=== PATIENT | female | born 1950 | race Caucasian/White ===

== ENCOUNTER 2021-01-09 07:01 | Inpatient (IN) | payer MEDICARE, BC ==
[2021-01-05 15:12] LABS: BASOPHILS # (AUTO) 0.1 X10'3 (0-0.2); BASOPHILS % (AUTO) 0.7 % (0-1); EOSINOPHILS # (AUTO) 0.2 X10'3 (0-0.9); EOSINOPHILS % (AUTO) 1.5 % (0-6); LYMPHOCYTES # (AUTO) 1.9 X10'3 (1.1-4.8); LYMPHOCYTES % (AUTO) 15.5 % (21-51); MEAN CORPUSCULAR HEMOGLOBIN 33.3 PG (27.0-31.0); MEAN CORPUSCULAR HGB CONC 33.8 g/dL (33.0-36.5); MEAN CORPUSCULAR VOLUME 98.4 FL (78-98); MEAN PLATELET VOLUME 8.3 FL (7.4-10.4); MONOCYTES # (AUTO) 0.8 X10'3 (0-0.9); MONOCYTES % (AUTO) 6.1 % (2-12); NEUTROPHILS # (AUTO) 9.4 X10'3 (1.8-7.7); NEUTROPHILS % (AUTO) 76.2 % (42-75); PRE OP HEMATOCRIT 44.1 % (35.0-45.0); PRE OP HEMOGLOBIN 14.9 g/dL (12.0-16.0); PRE OP PLATELET COUNT 264 X10'3 (140-440); RED BLOOD COUNT 4.48 X10'6 (4.20-5.60); RED CELL DISTRIBUTION WIDTH 14.3 % (11.5-14.5)
[2021-01-05 15:21] LABS: CLARITY,URINE SLIGHTLY CLOUDY (Clear); COLOR,URINE YELLOW (Yellow); GLUCOSE, URINE NEGATIVE (Neg); KETONES,URINE NEGATIVE (Neg); LEUKOCYTE ESTERASE ,URINE NEGATIVE (Neg); NITRITES, URINE NEGATIVE (Neg); OCCULT BLOOD,URINE NEGATIVE (Neg); PROTEIN,URINE NEGATIVE (Neg); UROBILINOGEN,URINE 0.2 E.U/dL (0.2-1.0)
[2021-01-05 15:24] LABS: ALBUMIN 3.3 G/DL (3.4-5.0); ALKALINE PHOSPHATASE 93 IU/L (46-116); BLOOD UREA NITROGEN 24 MG/DL (7-18); BUN/CREATININE RATIO 24.2 (6.6-38.0); CALCIUM 8.4 MG/DL (8.5-10.1); CHLORIDE 106 MMOL/L (99-107); CREATININE 0.99 MG/DL (0.40-0.90); PRE OP ALT 26 U/L (30-65); PRE OP ANION GAP 10 (8-16); PRE OP AST 20 U/L (10-37); PRE OP BILIRUB, TOTAL 0.3 MG/DL (0.0-1.0); PRE OP GLUCOSE 105 MG/DL (70-104); PRE OP POTASSIUM 4.1 MMOL/L (3.4-5.1); PRE OP SODIUM 142 MMOL/L (135-145); TOTAL CARBON DIOXIDE 26.2 MMOL/L (24-32); TOTAL PROTEIN 6.6 G/DL (6.4-8.2); eGFR 55 ML/MIN
[2021-01-05 15:39] LABS: UA COLLECTION TYPE CLN CATCH MIDSTREAM
[2021-01-05 15:41] LABS: MUCUS STRANDS MANY /LPF (Neg); SQUAMOUS EPITHELIAL CELL,UR MODERATE /LPF (FEW); TRANSITIONAL EPI CELLS,URINE FEW /HPF
[2021-01-05 15:43] LABS: BACTERIA,URINE FEW /HPF (Neg); WBC,URINE 0-4 /HPF (0-4)
[~2021-01-09] VITALS: Ht 154.9 cm; Wt 89.9 kg
[2021-01-09] VITALS (16 sets, daily range): BP systolic 106–151; BP diastolic 53–91
[~2021-01-09 07:01] MED LIST: BENA10TA74 PO; CHOL50002 PO; FLUO40CA PO; MELO-102 PO; MULT-1130 PO; OMEG-15 PO; VALA500T41 PO; VITA-268 PO; cefazolin/dext.iso 2gm/100ml IV ONE; famotidine 20mg tablet PO ONE; ringers solution, lacted 1,000 ML IV SCH
[2021-01-09] MEDS ORDERED: hydrALAZINE 20mg/ml inj. IV PRN (08:00)
[2021-01-09] MEDS ORDERED: acetaminophen 1,000mg/100ml IV 100 ML IV PRN (08:00)
[2021-01-09] MEDS ORDERED: labetalol 20mg/4ml (5mg/ml) syringe IV PRN (08:00)
[2021-01-09] MEDS ORDERED: morphine 2 MG/ML inj. syringe IV PRN (08:00)
[2021-01-09] MEDS ORDERED: morphine 4 MG/ML inj SYRINge IV PRN (08:00)
[2021-01-09] MEDS ORDERED: ondansetron/PF 4mg/2ml inj IV PRN ×2 (08:00→12:00)
[2021-01-09] MEDS ORDERED: proCHLORperazine 10 MG/2 ml inj IV PRN (08:00)
[2021-01-09] MEDS ORDERED: meperidine/PF 25mg/ml syringe IV PRN (08:00)
[2021-01-09] MEDS ORDERED: ringers solution, lacted 1,000 ML IV SCH (08:00)
[2021-01-09] MEDS ORDERED: HYDROmorphone/PF 0.2 MG/ML SYRINGE IV PRN (08:00)
[2021-01-09] MEDS ORDERED: scopolamine 1.5mg patch.TD72 TD ONE (08:40)
[2021-01-09] MEDS ORDERED: sevoflurane 250ml liquid IH ONE (08:56)
[2021-01-09] MEDS: scopolamine 1mg/72 hr patch TD SCH (09:00)
--- NOTE | 2021-01-09 09:02 | NUR ---
SCOPALAMINE PATCH 1 MG. APPLIED BEHIND R. EAR. EDUCATION GIVEN. PT. STATES UNDERSTANDING. PHARMACY NOTIFIED OF PATCH DOSE VS ORDER DOCUMENTATION AND UNKNOWN NDC NUMBER SO MED COULD NOT BE SCANNED.
[2021-01-09] MEDS ORDERED: fentaNYL/PF 50MCG/1 ML 2ML syringe ONE (09:07)
[2021-01-09] MEDS ORDERED: midazolam 1 mg/ML 2ml injection ONE (09:07)
[2021-01-09] MEDS ORDERED: propofol inj 20 ML IV ONE (09:43)
[2021-01-09] MEDS ORDERED: LIDOcaine 2% (20mg/ml) 5ml vial ONE (09:43)
[2021-01-09] MEDS ORDERED: 0.9 % SODIUM CHLORIDE 10 ML VIAL ONE ×2 (09:43)
[2021-01-09] MEDS ORDERED: dexamethasone sod phosphate 4mg/ml inj. ONE (09:43)
[2021-01-09] MEDS ORDERED: ROPIVAcaine 0.5% (5mg/ml) 30ml vial ONE (09:43)
[2021-01-09] MEDS ORDERED: ondansetron/PF 4mg/2ml inj ONE (09:45)
[2021-01-09] MEDS ORDERED: glycopyrrolate 0.2mg/ml inj ONE (09:55)
[2021-01-09] MEDS ORDERED: ROPIVAcaine 0.2% (10 MG/5 ML) BOLUS INJECTION POPLITEAL PRN (10:15)
[2021-01-09] MEDS ORDERED: ePHEDrine 50MG/ML INJ. ONE (10:25)
[2021-01-09] MEDS ORDERED: bacitracin 15gm ointment TP ONE (10:51)
[2021-01-09] MEDS ORDERED: magnesium hydroxide 30ml (MOM) UD suspension PO PRN (12:00)
[2021-01-09] MEDS ORDERED: mag hydrox/Alum hydrox/simeth 30ml oral suspension PO PRN (12:00)
[2021-01-09] MEDS ORDERED: acetaminophen 325mg tablet PO PRN (12:00)
--- NOTE | 2021-01-09 12:09 | NUR ---
Received from OR via BED IN STABLE CONDITION , accompanied by Anesthesiologist and CATSHOVEL DRIVER report given by Anesthesijodee. Addendum: 01/09/21 at 1336 by Berenice Estrella RN Amended: Links added.
[2021-01-09] MEDS: HYDROmorphone/PF 0.2 MG/ML SYRINGE IV PRN ×2 (12:48→13:20)
[2021-01-09] MEDS: ROPIVAcaine 0.2%/PF PUMP/bolus 545 ML POPLITEAL SCH (12:57)
--- NOTE | 2021-01-09 14:03 | NUR ---
Patient in room PAS IN 900. I have received report from Chanda RN in recovery and had the opportunity to ask questions and assume patient care.
--- NOTE | 2021-01-09 14:09 | NUR ---
PATIENT DISCHARGED FROM PACU INSTABLE CONDITION AFTER REPORT GIVEN TO WING DAVIS. PATIENT TRANSPORTED VIA BED WITH PERSONAL BELONGINGS WITH RN. Addendum: 01/09/21 at 1432 by Berenice Estrella RN Amended: Links added.
[2021-01-09] MEDS ORDERED: CHOL10006 PO (16:01)
[2021-01-09] MEDS ORDERED: potassium Cl 20 mEq SR tablet PO PRN ×2 (17:50)
[2021-01-09] MEDS ORDERED: potassium Cl 40MEQ/1/2NS 520ml 520 ML IV PRN (17:50)
[2021-01-09] MEDS ORDERED: magnesium Cl slow-release 64mg tablet PO PRN (17:50)
[2021-01-09] MEDS ORDERED: magnesium 4gm in 100ml NS 100 ML IV PRN (17:50)
--- NOTE | 2021-01-09 18:30 | NUR ---
Problems reprioritized. Patient report given, questions answered & plan of care reviewed with jey DIMAS.
[2021-01-09] MEDS: K and/or MAG REPLACEMENT MC SCH (20:00)
[2021-01-09] MEDS: lisinopril 10 MG tablet PO SCH (20:44)
[2021-01-09] MEDS ORDERED: CefTRIAXone/D5W-Rocephin 1gm 50 ML IV SCH (20:50)
--- NOTE | 2021-01-10 01:01 | NUR ---
reviewed assessment and edited as needed.
[2021-01-10 02:00] VITALS: BP 105/57
[2021-01-10] MEDS: HYDROcodone/acetaminophen 10/325mg tab PO PRN (05:04)
[2021-01-10 06:00] VITALS: BP 137/67
--- NOTE | 2021-01-10 06:15 | NUR ---
Patient in room ORTHO 4013. I have received report from Joanna DIMAS and had the opportunity to ask questions and assume patient care.
[2021-01-10 06:48] LABS: BASOPHILS % (AUTO) 0 % (0-1); EOSINOPHILS % (AUTO) 0.1 % (0-6); HEMATOCRIT 41.3 % (35.0-45.0); LYMPHOCYTES # (AUTO) 0.7 X10'3 (1.1-4.8); LYMPHOCYTES % (AUTO) 6.7 % (21-51); MEAN CORPUSCULAR HEMOGLOBIN 33.5 PG (27.0-31.0); MEAN CORPUSCULAR VOLUME 98.5 FL (78-98); MEAN PLATELET VOLUME 8.3 FL (7.4-10.4); MONOCYTES # (AUTO) 0.7 X10'3 (0-0.9); MONOCYTES % (AUTO) 6.3 % (2-12); NEUTROPHILS # (AUTO) 9.7 X10'3 (1.8-7.7); NEUTROPHILS % (AUTO) 86.9 % (42-75); PLATELET COUNT 220 X10'3 (140-440); RED BLOOD COUNT 4.19 X10'6 (4.20-5.60); RED CELL DISTRIBUTION WIDTH 14.3 % (11.5-14.5); WHITE BLOOD COUNT 11.2 X10'3 (4.5-11.0)
--- NOTE | 2021-01-10 07:02 | NUR ---
Patient in room ORTHO 4013. I have received report from WING Marshall and had the opportunity to ask questions and assume patient care.
[2021-01-10 07:11] LABS: ALANINE AMINOTRANSFERASE 25 U/L (12-78); ALBUMIN/GLOBULIN RATIO 0.9 (1.1-1.5); ALKALINE PHOSPHATASE 62 IU/L (46-116); ANION GAP 10 (8-16); ASPARTATE AMINO TRANSFERASE 21 U/L (10-37); BILIRUBIN,TOTAL 0.6 MG/DL (0.1-1.0); BLOOD UREA NITROGEN 14 MG/DL (7-18); CALCIUM 8.7 MG/DL (8.5-10.1); CHLORIDE 104 MMOL/L (99-107); GLUCOSE 104 MG/DL (70-104); MAGNESIUM 2.1 MG/DL (1.5-2.4); PHOSPHORUS 3.2 MG/DL (2.3-4.5); SODIUM 138 MMOL/L (135-145); TOTAL CARBON DIOXIDE 24.3 MMOL/L (24-32); TOTAL PROTEIN 6.2 G/DL (6.4-8.2); eGFR 55 ML/MIN
[2021-01-10] MEDS ORDERED: MULTIVITS MIN PO SCH (08:00)
[2021-01-10] MEDS ORDERED: BIOT PO SCH (08:00)
[2021-01-10] MEDS: K and/or MAG REPLACEMENT MC SCH ×2 (08:00→20:00)
[2021-01-10] MEDS ORDERED: FOLIC ACID PO SCH (08:00)
[2021-01-10] MEDS: OMEGA-3/DHA/EPA/FISH OIL 1 EACH CAPSULE.DR PO SCH (08:10)
[2021-01-10] MEDS: FLUoxetine 20mg capsule PO SCH (08:10)
[2021-01-10] MEDS: vitamin B comp w/Vit. C tab 1 TAB TABLET PO SCH (08:10)
[2021-01-10] MEDS: valacyclovir 500mg tablet PO SCH (08:11)
[2021-01-10] MEDS: cholecalciferol (vitamin D3) 1,000 unit (25mcg) tablet PO SCH (08:11)
[2021-01-10] MEDS: heparin, porcine 5000 units/ml vial SQ SCH ×2 (08:11→20:22)
[2021-01-10 10:00] VITALS: BP 119/57
[2021-01-10 14:00] VITALS: BP 114/54
[2021-01-10 18:00] VITALS: BP 121/61
--- NOTE | 2021-01-10 18:15 | NUR ---
Problems reprioritized. Patient report given, questions answered & plan of care reviewed with WING Marshall.
--- NOTE | 2021-01-10 19:22 | NUR ---
Patient in room ORTHO 4013. I have received report from Radha DIMAS and had the opportunity to ask questions and assume patient care.
[2021-01-10] MEDS: lactobacillus rhamnosus 10,000 MMU CELLS/CAPSULE PO SCH (20:22)
[2021-01-10] MEDS: lisinopril 10 MG tablet PO SCH (20:22)
[2021-01-10] MEDS: CefTRIAXone/D5W-Rocephin 1gm 50 ML IV SCH (20:23)
[2021-01-10 22:00] VITALS: BP 124/55
--- NOTE | 2021-01-10 23:55 | NUR ---
reviewed and agree with SRN assessment
[2021-01-11] MEDS: HYDROcodone/acetaminophen 10/325mg tab PO PRN ×5 (00:18→17:52)
--- NOTE | 2021-01-11 01:15 | NUR ---
PAGER ID: [phone] MESSAGE: PATIENT IN 4012 IN INCREASED PAIN AFTER FOOT SX. BLOCK HAS WORN OFF. IS SEEN BY HOSPITALIST GROUP. 1 NORCO INEFFECTIVE, CAN I HAVE BREAKTHRU MED? AFTAB 1860
[2021-01-11 06:12] LABS: BASOPHILS % (AUTO) 0.5 % (0-1); EOSINOPHILS # (AUTO) 0.1 X10'3 (0-0.9); EOSINOPHILS % (AUTO) 1.7 % (0-6); HEMATOCRIT 38.6 % (35.0-45.0); HEMOGLOBIN 13.1 g/dl (12.0-16.0); LYMPHOCYTES # (AUTO) 1.9 X10'3 (1.1-4.8); LYMPHOCYTES % (AUTO) 22.2 % (21-51); MEAN CORPUSCULAR HEMOGLOBIN 33.6 PG (27.0-31.0); MEAN CORPUSCULAR VOLUME 98.7 FL (78-98); MEAN PLATELET VOLUME 8.3 FL (7.4-10.4); MONOCYTES # (AUTO) 0.8 X10'3 (0-0.9); MONOCYTES % (AUTO) 9.3 % (2-12); NEUTROPHILS # (AUTO) 5.7 X10'3 (1.8-7.7); NEUTROPHILS % (AUTO) 66.3 % (42-75); PLATELET COUNT 187 X10'3 (140-440); RED BLOOD COUNT 3.91 X10'6 (4.20-5.60); RED CELL DISTRIBUTION WIDTH 14.7 % (11.5-14.5); WHITE BLOOD COUNT 8.5 X10'3 (4.5-11.0)
[2021-01-11 06:21] LABS: ALANINE AMINOTRANSFERASE 21 U/L (12-78); ALBUMIN 2.8 G/DL (3.4-5.0); ALKALINE PHOSPHATASE 58 IU/L (46-116); ANION GAP 6 (8-16); ASPARTATE AMINO TRANSFERASE 19 U/L (10-37); BILIRUBIN,TOTAL 0.4 MG/DL (0.1-1.0); BLOOD UREA NITROGEN 16 MG/DL (7-18); BUN/CREATININE RATIO 15.7 (6.6-38.0); CHLORIDE 107 MMOL/L (99-107); CREATININE 1.02 MG/DL (0.40-0.90); GLUCOSE 86 MG/DL (70-104); MAGNESIUM 2.1 MG/DL (1.5-2.4); PHOSPHORUS 2.8 MG/DL (2.3-4.5); POTASSIUM 3.8 MMOL/L (3.5-5.1); SODIUM 140 MMOL/L (135-145); TOTAL CARBON DIOXIDE 27.3 MMOL/L (24-32); TOTAL PROTEIN 5.7 G/DL (6.4-8.2); eGFR 53 ML/MIN
[2021-01-11 08:00] VITALS: BP 156/68
[2021-01-11] MEDS: K and/or MAG REPLACEMENT MC SCH ×2 (08:00→20:00)
[2021-01-11] MEDS: OMEGA-3/DHA/EPA/FISH OIL 1 EACH CAPSULE.DR PO SCH (08:03)
[2021-01-11] MEDS: lactobacillus rhamnosus 10,000 MMU CELLS/CAPSULE PO SCH ×2 (08:03→20:46)
[2021-01-11] MEDS: vitamin B comp w/Vit. C tab 1 TAB TABLET PO SCH (08:03)
[2021-01-11] MEDS: FLUoxetine 20mg capsule PO SCH (08:03)
[2021-01-11] MEDS: valacyclovir 500mg tablet PO SCH (08:03)
[2021-01-11] MEDS: heparin, porcine 5000 units/ml vial SQ SCH ×2 (08:04→20:48)
[2021-01-11] MEDS: cholecalciferol (vitamin D3) 1,000 unit (25mcg) tablet PO SCH (11:09)
[2021-01-11] MEDS: ROPIVAcaine 0.2%/PF PUMP/bolus 545 ML POPLITEAL SCH (11:12)
[2021-01-11 12:30] VITALS: BP 115/44
[2021-01-11 18:00] VITALS: BP 118/62
--- NOTE | 2021-01-11 18:31 | NUR ---
Problems reprioritized. Patient report given, questions answered & plan of care reviewed with Alyssa DIMAS.
[2021-01-11] MEDS: lisinopril 10 MG tablet PO SCH (20:46)
[2021-01-11] MEDS: CefTRIAXone/D5W-Rocephin 1gm 50 ML IV SCH (20:47)
[2021-01-11 22:00] VITALS: BP 130/61
[2021-01-12] MEDS: HYDROcodone/acetaminophen 10/325mg tab PO PRN ×3 (01:07→14:48)
[2021-01-12 06:00] VITALS: BP 138/69
--- NOTE | 2021-01-12 06:00 | NUR ---
Patient in room ORTHO 4013. I have received report from Marie DIMAS and had the opportunity to ask questions and assume patient care.
[2021-01-12 07:08] LABS: BASOPHILS % (AUTO) 0.6 % (0-1); EOSINOPHILS # (AUTO) 0.2 X10'3 (0-0.9); EOSINOPHILS % (AUTO) 2.6 % (0-6); HEMATOCRIT 39.5 % (35.0-45.0); HEMOGLOBIN 13.6 g/dl (12.0-16.0); LYMPHOCYTES # (AUTO) 1.6 X10'3 (1.1-4.8); LYMPHOCYTES % (AUTO) 22.1 % (21-51); MEAN CORPUSCULAR HEMOGLOBIN 33.9 PG (27.0-31.0); MEAN CORPUSCULAR HGB CONC 34.4 g/dL (33.0-36.5); MEAN CORPUSCULAR VOLUME 98.6 FL (78-98); MEAN PLATELET VOLUME 8.8 FL (7.4-10.4); MONOCYTES # (AUTO) 0.7 X10'3 (0-0.9); NEUTROPHILS # (AUTO) 4.8 X10'3 (1.8-7.7); NEUTROPHILS % (AUTO) 65.7 % (42-75); PLATELET COUNT 196 X10'3 (140-440); RED CELL DISTRIBUTION WIDTH 14.4 % (11.5-14.5); WHITE BLOOD COUNT 7.3 X10'3 (4.5-11.0)
[2021-01-12] MEDS: lactobacillus rhamnosus 10,000 MMU CELLS/CAPSULE PO SCH (07:27)
[2021-01-12] MEDS: FLUoxetine 20mg capsule PO SCH (07:28)
[2021-01-12] MEDS: OMEGA-3/DHA/EPA/FISH OIL 1 EACH CAPSULE.DR PO SCH (07:28)
[2021-01-12] MEDS: vitamin B comp w/Vit. C tab 1 TAB TABLET PO SCH (07:29)
[2021-01-12] MEDS: valacyclovir 500mg tablet PO SCH (07:30)
[2021-01-12] MEDS: cholecalciferol (vitamin D3) 1,000 unit (25mcg) tablet PO SCH (07:30)
[2021-01-12] MEDS: heparin, porcine 5000 units/ml vial SQ SCH (07:34)
[2021-01-12 07:35] LABS: ALANINE AMINOTRANSFERASE 24 U/L (12-78); ALBUMIN 2.9 G/DL (3.4-5.0); ALBUMIN/GLOBULIN RATIO 0.9 (1.1-1.5); ALKALINE PHOSPHATASE 63 IU/L (46-116); ANION GAP 10 (8-16); ASPARTATE AMINO TRANSFERASE 23 U/L (10-37); BILIRUBIN,TOTAL 0.4 MG/DL (0.1-1.0); BLOOD UREA NITROGEN 15 MG/DL (7-18); BUN/CREATININE RATIO 16.1 (6.6-38.0); CALCIUM 8.5 MG/DL (8.5-10.1); CHLORIDE 104 MMOL/L (99-107); CREATININE 0.93 MG/DL (0.40-0.90); GLUCOSE 89 MG/DL (70-104); MAGNESIUM 2.2 MG/DL (1.5-2.4); POTASSIUM 3.9 MMOL/L (3.5-5.1); SODIUM 139 MMOL/L (135-145); TOTAL CARBON DIOXIDE 25.3 MMOL/L (24-32); TOTAL PROTEIN 6.3 G/DL (6.4-8.2); eGFR 59 ML/MIN
[2021-01-12] MEDS: K and/or MAG REPLACEMENT MC SCH (08:00)
[2021-01-12] MEDS ORDERED: CEPH500C82 PO (10:28)
--- NOTE | 2021-01-12 11:28 | NUR ---
Student Medication Administration:For this medication-pass time frame [id number], all medications were reviewed, administered and documented per hospital policy by Cierra Hernandez. Student documentation:I have reviewed and agree with all interventions, assessments performed and documented by Cierra Hernandez.
--- NOTE | 2021-01-12 12:07 | NUR ---
Problems reprioritized. Patient report given, questions answered & plan of care reviewed with Marie DIMAS.
[2021-01-12 13:39] VITALS: BP 126/69
[2021-01-12] MEDS: scopolamine 1mg/72 hr patch TD SCH (13:40)
--- NOTE | 2021-01-12 15:00 | NUR ---
acting as clinical acute care nursing assistant, i reviewed student nurse documentation
--- NOTE | 2021-01-13 11:46 | NUR ---
CASE MANAGEMENT DISCHARGE FOLLOW UP: Spoke with pt via telephone. Reports that she is "doing very, very well," states that pain is under control with pain medication, getting around the house okay; denies CP, SOB, fever/chills, s/sx infection. Verbalizes understanding of s/sx requiring further evaluation/emergent assistance. Verbalizes understanding of new and current medications. Verbalizes compliance with MD discharge instructions, maintaining non-weightbearing status per MD instruction. Verbalizes understanding of the importance in making/keeping follow-up appointments, will see surgeon on 01/20/21. States even though she is very happy to be home, stay in hospital was very pleasant. States no further questions/concerns at this time.
== END 2021-01-12 15:20 | disposition home or self-care (01) | DRG 505 ==
LOC: UNDOADMIN 07:01 → PAS IN 07:01 → EDSTATUS 10:15 → PAS IN 11:58 → ORTHO 4S 14:21
PROVIDERS: ADMIT Podiatrist Foot & Ankle Surgery; ATTEND Podiatrist Foot & Ankle Surgery
PROC: 0QTN0ZZ Resection of Right Metatarsal, Open Approach (ICD-10-PCS; 2021-01-09)
PROC: 0SSP04Z Reposition Right Toe Phalangeal Joint with Internal Fixation Device, Open Approach (ICD-10-PCS; 2021-01-09)
PROC: 0SPM04Z Removal of Internal Fixation Device from Right Metatarsal-Phalangeal Joint, Open Approach (ICD-10-PCS; 2021-01-09)
PROC: 0SGM07Z Fusion of Right Metatarsal-Phalangeal Joint with Autologous Tissue Substitute, Open Approach (ICD-10-PCS; principal; 2021-01-09 08:56)
DX: T84.038A Mechanical loosening of other internal prosthetic joint, initial encounter (principal); M20.21 Hallux rigidus, right foot; M19.071 Primary osteoarthritis, right ankle and foot; M21.6X1 Other acquired deformities of right foot; M77.41 Metatarsalgia, right foot; L40.50 Arthropathic psoriasis, unspecified
CPT/HCPCS: 36415; 73620; 76000; 80053; 81001; 82948; 83735; 84100; 85025; 87081; 93005; 97116; 97161; 97530; G0378; J0131; J0696; J1100; J1170; J1644; J2001; J2250; J2405; J2704; J2795; J3010; J3490; J7120